=== PATIENT | male | born 1975 | race Caucasian/White ===

== ENCOUNTER 2016-10-11 13:11 | Emergency (ER) | payer SELFPAY ==
[~2016-10-11] VITALS: Ht 172.7 cm; Wt 86.2 kg
[2016-10-11 14:16] LABS: BASOPHILS % (AUTO) 0.7 % (0.0-2.0); DIFF TOTAL % 100 %; EOSINOPHILS # (AUTO) 0.1 /CMM (0.0-0.7); EOSINOPHILS % (AUTO) 1.3 % (0.0-6.0); HEMATOCRIT 34 % (39-51); HEMOGLOBIN 10.4 g/dL (13.5-17.5); LYMPHOCYTES # (AUTO) 0.9 /CMM (0.8-4.8); LYMPHOCYTES % (AUTO) 21.8 % (20.0-44.0); MEAN CORPUSCULAR HEMOGLOBIN 21 PG (26.0-33.0); MEAN CORPUSCULAR HGB CONC 31 g/dl (31.0-36.0); MEAN CORPUSCULAR VOLUME 69 fL (80-96); MONOCYTES # (AUTO) 0.4 /CMM (0.1-1.30); MONOCYTES % (AUTO) 9.3 % (2.0-12.0); NEUTROPHILS # (AUTO) 2.8 /CMM (1.8-8.9); NEUTROPHILS % (AUTO) 66.9 % (43.0-81.0); PLATELET COUNT (AUTO) 81 /CMM (150-450); RED BLOOD CELL COUNT(AUTO) 4.91 MIL/uL (4.5-6.0); WHITE BLOOD COUNT (AUTO) 4.2 K/uL (4.3-11.0)
[2016-10-11 14:26] LABS: CALCIUM, SERUM 7.6 mg/dL (8.5-10.1); CREATININE 0.5 mg/dL (0.6-1.3); POTASSIUM 3.5 mmol/L (3.5-5.1)
[2016-10-11 14:31] LABS: ALBUMIN 3.2 g/dL (3.4-5.0); BILIRUBIN,DIRECT 0.3 mg/dL (0.0-0.2); BILIRUBIN,TOTAL 0.6 mg/dL (0.2-1.0); INDIRECT BILIRUBIN 0.3 mg/dL (0.0-1.1); TOTAL PROTEIN, SERUM 8.6 g/dL (6.4-8.2)
[2016-10-11 14:43] LABS: INR 1.15 (0.87-1.13); PROTHROMBIN TIME 12.1 SECS (9.5-12.7)
[2016-10-11 14:50] LABS: BAND % (MANUAL) 2 % (0.0-5.0); BASOPHILS % (MANUAL) 1 % (0.0-2.0); EOSINOPHILS % (MANUAL) 1 % (0-4); LYMPHOCYTES % (MANUAL) 29 % (16-48); PLATELET ESTIMATE DECREASED
[2016-10-11 14:51] LABS: ANISOCYTOSIS 2+; HYPOCHROMASIA 1+; MICROCYTOSIS 2+; POLYCHROMASIA FEW; TEAR DROP CELLS FEW
[2016-10-11 18:18] VITALS: BP 143/87
== END 2016-10-11 18:19 | disposition home or self-care (01) ==
LOC: ER 13:12
DX: R04.0 Epistaxis (principal); F10.129 Alcohol abuse with intoxication, unspecified; R51 Headache; D69.6 Thrombocytopenia, unspecified; D64.9 Anemia, unspecified; D72.819 Decreased white blood cell count, unspecified
CPT/HCPCS: 36415; 70450-TC; 80048-TC; 80076-TC; 85025-TC; 85730-TC; A4606; G0480; Z7610

== ENCOUNTER 2016-10-11 23:44 | Emergency (ER) | payer SELFPAY ==
[~2016-10-11] VITALS: Ht 152.4 cm; Wt 99.8 kg
[2016-10-12 00:23] VITALS: BP 122/92
== END 2016-10-12 01:23 | disposition home or self-care (01) ==
LOC: ER 23:44
DX: R04.0 Epistaxis (principal); D69.6 Thrombocytopenia, unspecified

== ENCOUNTER 2017-10-07 20:25 | Emergency (ER) | payer SELFPAY ==
[~2017-10-07] VITALS: Ht 165.1 cm; Wt 74.8 kg
--- NOTE | 2017-10-07 20:30 | NUR ---
"ETOH/CONCRETE DUST INDUCED COUGH SINCE YESTERDAY", NAD NOTED, VSS, RESP EVEN AND UNLABORED, PT WAS PUT ON MONITOR, WAITING FOR MD OLIVEROS.
--- NOTE | 2017-10-07 21:17 | NUR ---
Patient is resting comfortably in bed with eyes closed. Easily aroused. VSS
--- NOTE | 2017-10-07 23:15 | NUR ---
ENDORSED TO DEANA, CHARGE NURSE, VSS, RESTING COMFORTABLY, ON MONITOR.
[2017-10-08 03:28] VITALS: BP 126/72
--- NOTE | 2017-10-08 03:29 | NUR ---
Patient given written and verbal discharge instructions. Patient verbalizes understanding of instructions. Patient is ambulatory with steady gait. Refuses offer of prison placement. Patient given list of available shelters in surrounding area.
== END 2017-10-08 03:29 | disposition home or self-care (01) ==
LOC: ER 20:27
DX: F10.10 Alcohol abuse, uncomplicated (principal); I10 Essential (primary) hypertension; D69.6 Thrombocytopenia, unspecified; D64.9 Anemia, unspecified; Z60.2 Problems related to living alone; Y90.9 Presence of alcohol in blood, level not specified
CPT/HCPCS: 99284; A4606; Z7610

== ENCOUNTER 2018-06-07 17:22 | Emergency (ER) | payer SELFPAY ==
[~2018-06-07] VITALS: Ht 165.1 cm; Wt 83.5 kg
[2018-06-07] MEDS ORDERED: IV NS 0.9% 1,000 ML BAG IV ONE (18:00)
--- NOTE | 2018-06-07 18:12 | NUR ---
PT FOUND BY PARAMEDICS SMELING OF ETOH SOMBULENT. PT SENT TO CT PIV PLACED SALINE BOLUS STARTED. BLOOD SUGAR 122 MD AWARE. PT SPEAKS SOME BARBADIAN BUT MAINLY IRANIAN, PT MOVES ALL EXTREMITIES WELL
[2018-06-07 18:15] LABS: BASOPHILS % (AUTO) 0.9 % (0.0-2.0); HEMATOCRIT 34 % (39-51); HEMOGLOBIN 11.4 g/dL (13.5-17.5); LYMPHOCYTES # (AUTO) 0.8 /CMM (0.8-4.8); LYMPHOCYTES % (AUTO) 21.4 % (20.0-44.0); MEAN CORPUSCULAR HGB CONC 34 g/dl (31.0-36.0); MEAN CORPUSCULAR VOLUME 82 fL (80-96); MONOCYTES # (AUTO) 0.3 /CMM (0.1-1.30); MONOCYTES % (AUTO) 8.4 % (2.0-12.0); NEUTROPHILS # (AUTO) 2.5 /CMM (1.8-8.9); NEUTROPHILS % (AUTO) 68.3 % (43.0-81.0); RED BLOOD CELL COUNT(AUTO) 4.17 MIL/uL (4.5-6.0); WHITE BLOOD COUNT (AUTO) 3.6 K/uL (4.3-11.0)
[2018-06-07 18:18] LABS: CARBON DIOXIDE 23 mmol/L (21-32); CHLORIDE 105 mmol/L (98-107); CREATININE 0.8 mg/dL (0.6-1.3); GLUCOSE 125 mg/dL (74-106); PLATELET COUNT (AUTO) 37 /CMM (150-450); SODIUM SERUM 141 mmol/L (136-145); UREA NITROGEN, BLOOD 5 mg/dL (7-18)
[2018-06-07 18:20] LABS: INR 1.25 (0.85-1.15)
[2018-06-07 18:22] LABS: POTASSIUM 2.8 mmol/L (3.5-5.1)
[2018-06-07 18:23] LABS: BILIRUBIN,TOTAL 2.7 mg/dL (0.2-1.0)
[2018-06-07 18:24] LABS: ACETAMINOPHEN < 2 ug/ml (10-30); ALANINE AMINOTRANSFERASE 102 U/L (12-78); ALCOHOL, BLOOD 421 mg/dL (0-0); ALKALINE PHOSPHATASE 235 U/L (46-116); ASPARTATE AMINOTRANSFERASE 201 U/L (15-37); BILIRUBIN,DIRECT 1.5 mg/dL (0.0-0.2); SALICYLATE < 2.8 mg/dL (2.8-20.0); TOTAL PROTEIN, SERUM 8.2 g/dL (6.4-8.2)
[2018-06-07 18:34] LABS: THYROID STIMULATING HORMONE 0.831 uIU/mL (0.358-3.74)
[2018-06-07] MEDS ORDERED: POTASSIUM CL. PREMIX PERIPHER. 50 ML ONE ×3 (19:02→23:07)
[2018-06-07] MEDS: POTASSIUM CL. PREMIX PERIPHER. 50 ML IV SCH ×4 (19:15→23:50)
--- NOTE | 2018-06-07 19:16 | NUR ---
ASSUMED CARE. PT ASLEEP, SOMNOLENT, NO ACUTE DISTRESS NOTED, RESP EVEN AND UNLABORED. NO PAIN OR DISCOMFORT NOTED AT THIS TIME. CALL LIGHT WIHTIN REACH. WILL CONTINUE OT MONITOR PT CLOSELY. PT ON CARDIAC MONITORING.
[2018-06-07 19:17] LABS: BAND % (MANUAL) 11 % (0.0-5.0); EOSINOPHILS % (MANUAL) 2 % (0-4); LYMPHOCYTES % (MANUAL) 24 % (16-48); MONOCYTES % (MANUAL) 10 % (0-11.0); NEUTROPHILS % (MANUAL) 53 (42-76)
[2018-06-07] MEDS ORDERED: POTASSIUM CHLORIDE 20 MEQ TAB.PRT.SR PO ONE (19:30)
[2018-06-07] MEDS ORDERED: Magnesium 1GM/D5W 100ML PREMIX PIGGYBACK IV ONE (19:30)
[2018-06-07] MEDS ORDERED: Magnesium 1GM/D5W 100ML PREMIX 100 ML IV ONE (20:26)
--- NOTE | 2018-06-07 23:22 | NUR ---
Patient asleep but arousable. Voided freely through urinal. No distress noted.
[2018-06-08] MEDS ORDERED: POTASSIUM CL. PREMIX PERIPHER. 50 ML ONE (00:16)
--- NOTE | 2018-06-08 01:23 | NUR ---
PT ASLEEP, EASILY AROUSABLE, NO ACUTE DISTRESS NOTED, RESP EVEN AND UNLABORED. CALL LIGHT WITHIN REACH. WILL CONTINUE TO MONITOR PT CLOSELY.
[2018-06-08] MEDS ORDERED: POTASSIUM CHLORIDE 20 MEQ TAB.PRT.SR PO ONE (03:33)
[2018-06-08 03:59] VITALS: BP 115/69
== END 2018-06-08 04:04 | disposition home or self-care (01) ==
LOC: ER 17:26
DX: S09.8XXA Other specified injuries of head, initial encounter (principal); F10.129 Alcohol abuse with intoxication, unspecified; D69.6 Thrombocytopenia, unspecified; E87.6 Hypokalemia; I10 Essential (primary) hypertension; Y90.8 Blood alcohol level of 240 mg/100 ml or more; Z60.2 Problems related to living alone; W18.39XA Other fall on same level, initial encounter; Y93.89 Activity, other specified; Y92.89 Other specified places as the place of occurrence of the external cause; Y99.8 Other external cause status
CPT/HCPCS: 36415; 70450; 70486; 80048; 80076; 80329; 82962; 83735; 84443; 85025; 85730; 93005; 96365; 96366; 96367; 99285; G0480 ×2; J3475; J3480 ×4; J7030; A4606; Z7610

== ENCOUNTER 2019-03-22 22:37 | Inpatient (IN) | payer MEDICAID ==
[~2019-03-22] VITALS: Ht 172.7 cm; Wt 75.3 kg
--- NOTE | 2019-03-22 23:00 | NUR ---
PT BIBRA FROM STREET FOR ALCOHOL INTOXICATION. PT RESPONSIVE TO PAINFUL STIMULI. VITAL SIGNS STABLE. PLACED ON CONTINUOUS MONITOR AND PULSE OX. WILL CONTINUE TO MONITOR
--- NOTE | 2019-03-23 00:09 | NUR ---
PT RESTING COMFORTABLY IN BED. VITAL SIGNS STABLE. WILL CONTINUE TO MONITOR
--- NOTE | 2019-03-23 04:33 | NUR ---
PT HAS UNSTEADY GAIT. UNABLE TO AMBULTE TO RESTROOM. URINAL PROVIDED TO PT. SITTER AT BEDSIDE, WILL CONTINUE TO MONITOR
--- NOTE | 2019-03-23 07:18 | NUR ---
PT SLEEPING RESP EVEN UNLABORED ON MONITORS
--- NOTE | 2019-03-23 08:52 | NUR ---
PT AWAKE VSS AWAITING EVALUATION BY ER PROVIDER.
[2019-03-23] MEDS ORDERED: LORAZEPAM INJ 2 MG/ML VIAL IV ONE (09:30)
[2019-03-23] MEDS ORDERED: LORAZEPAM INJ 2 MG/ML VIAL ONE (09:34)
[2019-03-23] MEDS ORDERED: ONDANSETRON HCL/PF 4 MG/2 ML VIAL ONE (09:41)
--- NOTE | 2019-03-23 09:44 | NUR ---
PT NAUSEA PRESENT IV STARTED 20G RT AC INFUSING NS AND ZOFRAN 4 MG IVP AND ATIVAN 4 MG IVP PER MD ORDER LABS DRAWN SENT LAB
[2019-03-23] MEDS ORDERED: ONDANSETRON HCL/PF 4 MG/2 ML VIAL IVP ONE (10:00)
[2019-03-23] MEDS ORDERED: IV NS 0.9% 1,000 ML BAG IV ONE (10:00)
[2019-03-23 10:06] LABS: ALBUMIN 2.2 g/dL (3.4-5.0); BILIRUBIN,DIRECT 1.4 mg/dL (0.0-0.2); BILIRUBIN,TOTAL 2.1 mg/dL (0.2-1.0); CALCIUM, SERUM 6.9 mg/dL (8.5-10.1); CREATININE 0.5 mg/dL (0.6-1.3); POTASSIUM 3.7 mmol/L (3.5-5.1); TOTAL PROTEIN, SERUM 6.8 g/dL (6.4-8.2)
--- NOTE | 2019-03-23 10:09 | NUR ---
PT PEND ADMIT FOR WITHDRAWL
--- NOTE | 2019-03-23 10:16 | NUR ---
PANEL ON-CALL PAGED
[2019-03-23 11:05] LABS: BASOPHILS % (AUTO) 0.8 % (0.0-2.0); EOSINOPHILS % (AUTO) 0.3 % (0.0-6.0); HEMATOCRIT 23 % (39-51); HEMOGLOBIN 7.1 g/dL (13.5-17.5); LYMPHOCYTES # (AUTO) 0.6 /CMM (0.8-4.8); LYMPHOCYTES % (AUTO) 18.7 % (20.0-44.0); MEAN CORPUSCULAR HGB CONC 31 g/dl (31.0-36.0); MEAN CORPUSCULAR VOLUME 72 fL (80-96); MONOCYTES # (AUTO) 0.2 /CMM (0.1-1.30); MONOCYTES % (AUTO) 6.1 % (2.0-12.0); NEUTROPHILS # (AUTO) 2.5 /CMM (1.8-8.9); NEUTROPHILS % (AUTO) 74.1 % (43.0-81.0); RED BLOOD CELL COUNT(AUTO) 3.22 MIL/uL (4.5-6.0); WHITE BLOOD COUNT (AUTO) 3.3 K/uL (4.3-11.0)
[2019-03-23 11:06] LABS: PLATELET COUNT (AUTO) 23 /CMM (150-450)
[2019-03-23 11:08] LABS: LYMPHOCYTES % (MANUAL) 24 % (16-48); MONOCYTES % (MANUAL) 4 % (0-11.0)
[2019-03-23 11:10] LABS: NEUTROPHILS % (MANUAL) 72 (42-76)
--- NOTE | 2019-03-23 12:13 | NUR ---
MED-SURGE BED 315-1
--- NOTE | 2019-03-23 12:20 | NUR ---
REPORT GIVEN TO NANCY MASON.
--- NOTE | 2019-03-23 12:23 | NUR ---
RN NOTES REPORT RECEIVED FROM MIKKI MASON.
--- NOTE | 2019-03-23 12:36 | NUR ---
PT Yasmin RANSFERED TO FLOOR
[2019-03-23] MEDS ORDERED: ZOLPIDEM TARTRATE 5 MG TABLET PO PRN (13:00)
[2019-03-23] MEDS ORDERED: Z GUARD REMEDY 2 OZ OINT TP PRN (13:00)
[2019-03-23] MEDS ORDERED: MAGNESIUM HYDROXIDE 30 ML UDC PO PRN (13:00)
[2019-03-23] MEDS ORDERED: MAG HYDROX/AL HYDROX/SIMETH 30 ML UDC PO PRN (13:00)
--- NOTE | 2019-03-23 13:30 | NUR ---
RESEARCH CONSULTANT ADMITTING NOTES ADMITTED A 43 YEARS OLD MALE TO UNIT VIA GURNEY ACCOMPANIED BY 2 E.R NURSE. PATIENT IS VERY LETHARGIC. EASILY AROUSABLE. NO C/O PAIN OR DISCOMFORT AT THIS TIME. PATIENT ORIENTED TO UNIT, STAFF AND ROOM. ON ROOM AIR, BREATHING EVEN AND UNLABORED. V/S TAKEN AND RECORDED. PHYSICAL ASSESSMENT DONE. PHOTOS OF SKIN ISSUES TAKEN AND FILED ON CHART. ABDOMEN SOFT, NON-DISTENDED WITH POSITIVE BOWEL SOUNDS ON FOUR QUADRANTS, LUNGS CLEAR ON AUSCULTATION. PATIENT WITH IV ACCESS ON RIGHT AC #20, PATENT AND INTACT. SAFETY MEASURES INITIATED, BED PLACED IN LOW LOCKED POSITION, SIDE RAILS UP X2. CALL LIGHT PLACED WITHIN EASY REACH. WILL CONTINUE TO MONITOR.
[2019-03-23 13:35] VITALS: BP 132/75
[2019-03-23] MEDS: IV NS 0.9% 1,000 ML IV PRN (14:30)
[2019-03-23] MEDS: Thiamine 100 MG in IV D5W 50 ML IV SCH (14:31)
[2019-03-23 16:00] VITALS: BP 124/75
--- NOTE | 2019-03-23 16:00 | NUR ---
DIRECTOR MISSION NOTES PATIENT NOTED WITH RED AND BLACK COLOR MIXED IN THE STOOLS . MD MADE AWARE AND ORDERED FOR STOOL OB. WILL CONTINUE TO MONITOR.
--- NOTE | 2019-03-23 18:46 | NUR ---
PIPELINES LABORER CLOSING NOTES PATIENT IN BED RESTING COMFORTABLY IN MODERATE HIGH BACK REST. A/O X 2. ON RA, TOLERATING WELL. IV FLUIDS ON RIGHT AC WITH NS @75ML/HR, PATENT AND INTACT. ON TELE MONITORING WITH CURRENT READINGS OF SINUS TACHYCARDIA, HR OF 110. NO SIGNS OF CARDIAC DISTRESS. SAFETY MEASURES IN PLACE, BED IN LOW LOCKED POSITION, SIDE RAILS UP X2. CALL LIGHT WITHIN EASY REACH. WILL ENDORSE TO RETAIL SUPERVISOR NURSE.
--- NOTE | 2019-03-23 19:40 | NUR ---
RN INITIAL NOTES: RECEIVED REPORT FROM NANCY MASON. PT IN BED, LETHARGIC, RESPONDS TO TACTILE STIMULI. PER REPORT PT HAD BM TODAY, UNABLE TO HOLD AND POOP ALL OVER THE FLOOR, BM MIXED WITH DARK AND BLOOD STOOL. NOTED PT'S BED NOT WORKING, BED ALRM NOT FUNCTIONING, NOTIFIED HOSPICE FELLOW AND WILL LOOK FOR ANOTHER ROOM AND BED TO TRANSFER THE PT. IV ACCESS PATENT AND FLUSHING WELL, INFUSING WITH NS AT 75ML/HR, NO S/S OF IV INFILTRATION NOTED. ON TELE MONITORING SINUS TACHY 112. SAFETY PRECAUTIONS FOR FALL INITIATED, CALL LIGHT IN REACH, WILL CONTINUE MONITORING PT.
[2019-03-23 20:00] VITALS: BP_SYST 129; BP_SYST 130; BP_DIAS 73; BP_DIAS 74
--- NOTE | 2019-03-23 20:29 | NUR ---
RN NOTES: TRANSFER PT TO ROOM CLOSER TO STATION, PT FALL RISK, AND ALCOHOL WITHDRAWAL. MOVED TO ROOM 310-2 WITH ALL BELONGINGS SENT WITH PT UPON TRANSFER
--- NOTE | 2019-03-23 20:30 | NUR ---
RN NOTES: ASSISTED PT TO BATHROOM, ABLE TO AMBULATE WITH ASSIST. PT BM BLOODY, ALMOST FILLED THE TOILET BOWL, UNABLE TO COLLECT STOOL FOR OB BECAUSE PT UNABLE TO HOLD MOVING BOWELS. ASSISTED BACK TO BE, VS TAKEN AND RECORDED. WILL NOTIFY , PT COMPLAINING OF HEAD ACHE.
[2019-03-23 20:32] VITALS: BP 129/73
--- NOTE | 2019-03-23 20:51 | NUR ---
BLOOD SUGAR: CHECKED PT'S BLOOD SUGAR, RESULT IS 105
--- NOTE | 2019-03-23 20:54 | NUR ---
RN NOTES: PAGED DECORATING CONSULTANT MD TO GIVE AN UPDATE REGARDING PT
--- NOTE | 2019-03-23 21:00 | NUR ---
RN NOTES: SUCTION SET UP SECURED, SIDE RAILS PADDED AT THIS TIME, PT ON SEIZURE PRECAUTIONS
--- NOTE | 2019-03-23 21:48 | NUR ---
RN NOTES: SAIL REPAIRER MD CURRENTLY IN THE UNIT, RELAYED PT'S H/H AND PLT, EPISODE OF BLOODY STOOL, LATEST VS AND HR, PER MD TO SEND STOOL TO LAB FOR OB. NO TRANSFUSION ORDER AT THIS TIME. WILL CONTINUE MONITORING PT.
[2019-03-23] MEDS: ACETAMINOPHEN 325 MG TABLET PO PRN (21:51)
--- NOTE | 2019-03-23 21:52 | NUR ---
PRN TYLENOL: PT C/O HEAD ACHE, PRN TYLENOL 650 MG TAB PO ADMINISTERED TO PT AT THIS TIME. PER MD REYEZ TO GIVE.
[2019-03-24] VITALS (26 sets, daily range): BP systolic 122–155; BP diastolic 65–90
[2019-03-24] MEDS: HYDROCODONE/APAP 5/325MG 1 EACH TABLET PO PRN (00:47)
--- NOTE | 2019-03-24 00:48 | NUR ---
PRN NORCO: P C/O HEAD ACHE, STATED "JULIANO CIRO CASTELLANO", CALLED BRAD JADE TO TRANSLATE, PT CYPRIOT SPEAKING ONLY, PS 02/27, PRN NORCO 5/325 MG TAB PO ADMINISTERED TO PT AT THIS TIME. WILL CONTINUE TO MONITOR AND REASSESS PT. ALL COMMUNICATIONS TRANSLATED TO CYPRIOT BY BRAD Milsl CYPRIOT SPEAKING STAFF.
[2019-03-24] MEDS: IV NS 0.9% 1,000 ML IV PRN ×2 (02:50→21:38)
[2019-03-24] MEDS: ONDANSETRON HCL/PF 4 MG/2 ML VIAL IVP PRN ×4 (03:24→21:22)
--- NOTE | 2019-03-24 03:24 | NUR ---
PRN ZOFRAN: PT C/O "MUCHO VOMITO AND NAUSEA", PRN ZOFRAN ADMINISTERED AT THIS TIME. ALL COMMUNICATIONS TRANSLATED BY WICKER WORKER MARCIANO NAMIBIAN SPEAKING RN. WILL CONTINUE TO MONITOR AND REASSESS
--- NOTE | 2019-03-24 05:30 | NUR ---
rn notes: noted hand and leg tremors upon ambulating to the bathroom.
[2019-03-24] MEDS: LORAZEPAM INJ 2 MG/ML VIAL IV PRN ×4 (05:39→17:16)
--- NOTE | 2019-03-24 05:40 | NUR ---
PRN ATIVAN: NOTED PT TO B RESTLESS,WITH HAND AND LEG TREMORS, SWEATING, ANXIOUS, ON SINUS TACHYCARDIA HR 115, PRN ATIVAN 1MG IVP ADMINISTERED AT THIS TIME. WILL CONTINUE TO MONITOR AND REASSESS PT.
[2019-03-24 06:06] LABS: BASOPHILS % (AUTO) 0.4 % (0.0-2.0); EOSINOPHILS % (AUTO) 2.3 % (0.0-6.0); LYMPHOCYTES # (AUTO) 0.3 /CMM (0.8-4.8); LYMPHOCYTES % (AUTO) 18.5 % (20.0-44.0); MEAN CORPUSCULAR HGB CONC 31 g/dl (31.0-36.0); MEAN CORPUSCULAR VOLUME 72 fL (80-96); MONOCYTES # (AUTO) 0.2 /CMM (0.1-1.30); MONOCYTES % (AUTO) 9.5 % (2.0-12.0); NEUTROPHILS # (AUTO) 1.1 /CMM (1.8-8.9); NEUTROPHILS % (AUTO) 69.3 % (43.0-81.0); RED BLOOD CELL COUNT(AUTO) 2.66 MIL/uL (4.5-6.0)
[2019-03-24 06:27] LABS: CALCIUM, SERUM 7.4 mg/dL (8.5-10.1); CREATININE 0.6 mg/dL (0.6-1.3); MAGNESIUM 1.7 mg/dL (1.8-2.4); POTASSIUM 3.5 mmol/L (3.5-5.1)
[2019-03-24 06:39] LABS: HEMOGLOBIN 5.9 g/dL (13.5-17.5); WHITE BLOOD COUNT (AUTO) 1.6 K/uL (4.3-11.0)
[2019-03-24 06:40] LABS: HEMATOCRIT 19 % (39-51); PLATELET COUNT (AUTO) 15 /CMM (150-450)
--- NOTE | 2019-03-24 06:41 | NUR ---
CRITICAL RESULT: WBC 1.6, PLT 15, HGB 5.9, HCT 19 REPORTED BY NIKKI CARLSON, READ BACK COMPLETED. NOTIFIED MD CUSHION SPRING ASSEMBLER, AWAITING CALL BACK.
--- NOTE | 2019-03-24 06:42 | NUR ---
RN NOTES: NOTIFIED COLOR DRUM WORKER
--- NOTE | 2019-03-24 06:52 | NUR ---
RN CLOSING NOTES: PT REMAINS A/O X2-3 ON 2L OXYGEN VIA NC RESPIRATIONS EVEN AND UNLABORED. IV ACCESS REMAINS PATENT AND FLUSHING WELL, INFUSING WITH NS AT 75ML/HR. NO S/S OF IV INFILTRATION NOTED. REMAINS SINUS RHYTHM TO SINUS TACH HR 91. KEPT SIDE RAILS PADDED, SUCTION SET UP REMAINS IN PLACED. NO EPISODE OF SEIZURE NOTED THROUGHOUT THE SHIFT. STILL FOR STOOL OB. AWAITING FOR DRUM HANDLER EPIC MD TO CALLBACK REGARDING CRITICAL LAB RESULT. VS REMAINS STABLE, NEEDS ATTENDED. SAFETY PRECAUTIONS FOR FALL REMAINS ENGAGED, CALL LIGHT IN REACH, WILL ENDORSE TO DAY RN FOR CONTINUITY OF CARE.
--- NOTE | 2019-03-24 07:20 | NUR ---
RN OPENING NOTES: RECEIVED PATIENT IN BED RESTING COMFORTABLY IN MODERATE HIGH BACK REST. A/O X2-3. ON 2L OXYGEN VIA NC RESPIRATIONS EVEN AND UNLABORED. IV FLUIDS ON RIGHT AC #20 WITH NS AT 75ML/HR. NO S/S OF IV INFILTRATION NOTED. ON TELE MONITORING WITH READING OF SINUS RHYTHM TO SINUS TACH HR 90'S. SAFETY MEASURES IN PLACE, BED IN LOW LOCKED POSITION, SIDE RAILS UP X 2. CALL LIGHT WITHIN EASY REACH, WILL CONTINUE TO MONITOR.
--- NOTE | 2019-03-24 07:30 | NUR ---
2ND PAGED TO [facility] PUTTY MIXER: PLACED SECOND CALL TO [facility] , ASSIGNED MD DR MCGARRY, REGARDING CRITICAL LAB RESULT. AWAITING CALL BACK
--- NOTE | 2019-03-24 08:05 | NUR ---
RN NOTES PAGED DR. MCGARRY TWICE. AWAITING FOR CALL BACK. DR. XIE ON UNIT, MADE AWARE AND ORDERED 3 UNITS OF PRBC WHILE WAITING FOR DR. MCGARRY TO CALL BACK. WILL CONTINUE TO MONITOR.
--- NOTE | 2019-03-24 08:20 | NUR ---
RN NOTES CALL RECEIVED FROM DR. MCGARRY INFORMED OF PATIENTS CONDITION AND LAB RESULTS, ORDERS RECEIVED FOR PRBC 2 UNITS TRANSFUSE STAT AND PLATELETS 1 UNIT. TRANSFER PATIENT TO ICU FOR CLOSER MONITORING. ORDERS NOTED AND CARRIED OUT. CALLED NURSE CLINICIAN FOR BED IN ICU. LAB CALLED FOR STAT PRBC.
[2019-03-24] MEDS: FOLIC ACID 1 MG TABLET PO SCH (09:00)
--- NOTE | 2019-03-24 09:05 | NUR ---
RN NOTES BLOOD TRANSFUSION STARTED @ 09:00. PATIENT'S VITAL SIGNS WITHIN NORMAL LIMITS. INFORMED CONSENT SIGNED AND FILED AT THE CHART. WILL CONTINUE TO MONITOR.
--- NOTE | 2019-03-24 09:10 | NUR ---
RN NOTES CALLED ICU AND SPOKE TO NICK MASON, TO GIVE REPORT REGARDING PATIENT ON 310 - 2.
[2019-03-24 09:49] LABS: EOSINOPHILS % (MANUAL) 1 % (0-4); LYMPHOCYTES % (MANUAL) 20 % (16-48); MONOCYTES % (MANUAL) 6 % (0-11.0); NEUTROPHILS % (MANUAL) 73 (42-76)
--- NOTE | 2019-03-24 09:50 | NUR ---
RN NOTES PATIENT WAS TRANSFERRED TO ICU ON BED 251, ENDORSE TO NICK MASON.
[2019-03-24] MEDS: Magnesium 1GM/D5W 100ML PREMIX 100 ML IV SCH ×2 (10:19→11:12)
--- NOTE | 2019-03-24 10:40 | NUR ---
RN NOTE 1000: Received patient from tele 310. Awake, A/Ox2, Bulgarian speaking understands little Monegasque. Dx ETOH withdrawal and GIB AEB episode of bloody stools. H/H 5.9/, Plt 15, to transfer 2 units of PRBC and 1 unit Plt per previous nurse. Will F/U with H/H after 2 units PRBC. First unit PRBC ongoing, no any adverse reactions noted. Awaiting GI consult. Checked diaper, no BM noted for now. 1020: Placed new PIV on LH. Ativan and Zofran given secondary to noted with tremors and nausea. 1040: No any significant changes noted at this time. Kept clean, warm and dry. Needs attended.
[2019-03-24] MEDS: Thiamine 100 MG in IV D5W 50 ML IV SCH (13:30)
--- NOTE | 2019-03-24 18:37 | NUR ---
RN NOTE Done with 2 PRBC and 1 Plt transfusion. Awaiting H/H level. Followed up with CT re: CT abd, said may do at 1999.
[2019-03-24 19:31] LABS: HEMOGLOBIN 7.4 g/dL (13.5-17.5)
[2019-03-25] VITALS (20 sets, daily range): BP systolic 121–146; BP diastolic 59–97
[2019-03-25 00:45] LABS: HEMOGLOBIN 7.5 g/dL (13.5-17.5)
[2019-03-25] MEDS: ONDANSETRON HCL/PF 4 MG/2 ML VIAL IVP PRN ×3 (02:50→15:09)
--- NOTE | 2019-03-25 04:42 | NUR ---
1999 Received alert and resting quietly on bed. Scheduled for CT this evening, waiting for transport. Remains stable, post transfusion. No signs of reaction of any. 2044 Mobile via Busy Mooser[place] transported to CT on bed, via ACLS protocal on monitor with charge Nurse Vandana. [address] and back to room 251-1. Patient stable and connected to monitor. Vital signs re- viewed and stable. 2129 Patient nauseous and medicated per MD order. No signs of active bleeding or vomiting. 2199 Reassessment, medication with good effect. Observed resting quietly. No active emesis. 0000 On rounds, observed resting comfortably. No signs of delirium tremens. No seizure activity. 399 Condition stable, dozing intermittently. No signs of active bleeding. No seizure activity or delirium tremens of any this shift. Safe environment maintained, monitored closely, free of injury,
[2019-03-25 05:02] LABS: BASOPHILS % (AUTO) 0.4 % (0.0-2.0); EOSINOPHILS % (AUTO) 2.9 % (0.0-6.0); HEMATOCRIT 23 % (39-51); HEMOGLOBIN 7.6 g/dL (13.5-17.5); LYMPHOCYTES # (AUTO) 0.3 /CMM (0.8-4.8); LYMPHOCYTES % (AUTO) 16.6 % (20.0-44.0); MEAN CORPUSCULAR HGB CONC 33 g/dl (31.0-36.0); MEAN CORPUSCULAR VOLUME 75 fL (80-96); MONOCYTES # (AUTO) 0.1 /CMM (0.1-1.30); MONOCYTES % (AUTO) 7.5 % (2.0-12.0); NEUTROPHILS # (AUTO) 1.4 /CMM (1.8-8.9); NEUTROPHILS % (AUTO) 72.6 % (43.0-81.0); RED BLOOD CELL COUNT(AUTO) 3.11 MIL/uL (4.5-6.0)
[2019-03-25 05:13] LABS: CALCIUM, SERUM 7.4 mg/dL (8.5-10.1); CREATININE 0.5 mg/dL (0.6-1.3); MAGNESIUM 1.8 mg/dL (1.8-2.4); PHOSPHORUS 2.8 mg/dL (2.5-4.9); POTASSIUM 3.3 mmol/L (3.5-5.1)
[2019-03-25 05:26] LABS: PLATELET COUNT (AUTO) 20 /CMM (150-450); WHITE BLOOD COUNT (AUTO) 1.9 K/uL (4.3-11.0)
[2019-03-25 05:58] LABS: NEUTROPHILS % (MANUAL) 73 (42-76)
[2019-03-25 06:00] LABS: LYMPHOCYTES % (MANUAL) 21 % (16-48); METAMYELOCYTES % 6 % (0-0)
[2019-03-25] MEDS ORDERED: IV NS 0.9% 500 ML BAG IV ONE (06:00)
--- NOTE | 2019-03-25 07:24 | NUR ---
FLOOR ATTENDANT NOTES RECEIVED BEDSIDE REPORT. PATIENT SLEEPING ABLE TO AROUSE WITH VOICE AND TOUCH. NEPALESE SPEAKING MALE A/O X3. NO SIGNS OR SYMPTOMS OF RESPIRATORY DISTRESS SATURATING 100% ON ROOM AIR. NO C/O PAIN NOTED. IVF TO RAC # 20 GAUGE RUNNING NS @ 75 ML/HR. LEFT HAND # 20 GAUGE SALINE LOCK. SINUS TACHY ON MONITOR LOW 100"S. CRITICAL LAB PLATELETS CALLED TO NOC WILL F/U WITH MD. SAFETY FALL AND ASPIRATION PRECAUTIONS IN PLACE BED IN LOW LOCKED POSITION. CALL LIGHT WITHIN REACH WILL CONT TO MONITOR ACCORDINGLY
[2019-03-25] MEDS: FOLIC ACID 1 MG TABLET PO SCH (09:38)
[2019-03-25] MEDS ORDERED: POTASSIUM CHLORIDE 20 MEQ TAB.PRT.SR PO SCH (10:00)
[2019-03-25] MEDS: IV NS 0.9% 1,000 ML IV PRN (11:15)
[2019-03-25] MEDS: NEXIUM 40 MG VIAL IV SCH ×2 (11:46→22:53)
[2019-03-25 12:25] LABS: HEMOGLOBIN 7.4 g/dL (13.5-17.5)
[2019-03-25] MEDS: Magnesium 1GM/D5W 100ML PREMIX 100 ML IV SCH ×2 (13:04→15:08)
[2019-03-25] MEDS: Thiamine 100 MG in IV D5W 50 ML IV SCH (14:04)
--- NOTE | 2019-03-25 16:43 | NUR ---
REPORT GIVEN TO MARTIN MASON PATIENT TO GO TO ROOM 111-2
[2019-03-25] MEDS: ACETAMINOPHEN 325 MG TABLET PO PRN (17:04)
--- NOTE | 2019-03-25 17:58 | NUR ---
PATIENT TRANSFERED TO TELE 1ST FLOOR ROOM 112-2 ACLS PROTOCOL
--- NOTE | 2019-03-25 18:00 | NUR ---
tele biology intern: notes received pt from icu via bed accompanied by 2 staff. pt already had dinner there. pt awake, a/ox2-3; serbian speaking only. oriented to room and surroundings. vss. tele sr=[id number]. no apparent distress noted. instructed to call for assistance. bed alarm on for safety. bsc provided. call light within reach. will continue to monitor.
--- NOTE | 2019-03-25 18:50 | NUR ---
tele senior risk analyst: notes in bed awake, looking at the windows. no c/o pain or any discomfort. needs attended. instructed to call for assistance. will continue to monitor.
--- NOTE | 2019-03-25 19:00 | NUR ---
tele poultry grader: notes bedside report given to wesley (verito) for continuity of care. call light within reach.
--- NOTE | 2019-03-25 19:30 | NUR ---
PLATE WORKER HELPER OPENING NOTE PATIENT CITIZEN OF [place] SPEAKING MALE A/O X3, AWAKE SITTING ON THE BED. NO SIGNS OF RESPIRATORY DISTRESS. O2 100% ON ROOM AIR. NO COMPLAINING OF PAIN AT HIS MOMENT. IVF TO RAC # 20G RUNNING NS@ 75ML/HR. LEFT HAND # 20G SALINE LOCK. PATIENT ON REGULAR DIET. SAFETY GEARS ON. BED AT LOW/LOCKED POSITION AND CALL LIGHT IN REACH WILL CONTINUE TO MONITOR.
[2019-03-25 19:40] LABS: HEMOGLOBIN 7.5 g/dL (13.5-17.5)
[2019-03-25] MEDS: HYDROCODONE/APAP 5/325MG 1 EACH TABLET PO PRN (23:06)
[2019-03-26] VITALS (7 sets, daily range): BP systolic 130–156; BP diastolic 68–92
[2019-03-26] MEDS: ONDANSETRON HCL/PF 4 MG/2 ML VIAL IVP PRN ×3 (01:01→20:32)
[2019-03-26] MEDS: IV NS 0.9% 1,000 ML IV PRN ×2 (05:07→23:14)
[2019-03-26] MEDS: HYDROCODONE/APAP 5/325MG 1 EACH TABLET PO PRN ×2 (05:08→09:28)
[2019-03-26 06:36] LABS: BASOPHILS % (AUTO) 0.3 % (0.0-2.0); EOSINOPHILS % (AUTO) 3.9 % (0.0-6.0); HEMATOCRIT 24 % (39-51); HEMOGLOBIN 7.8 g/dL (13.5-17.5); LYMPHOCYTES # (AUTO) 0.5 /CMM (0.8-4.8); MEAN CORPUSCULAR HGB CONC 32 g/dl (31.0-36.0); MEAN CORPUSCULAR VOLUME 74 fL (80-96); MONOCYTES # (AUTO) 0.2 /CMM (0.1-1.30); MONOCYTES % (AUTO) 12.5 % (2.0-12.0); NEUTROPHILS # (AUTO) 1.1 /CMM (1.8-8.9); NEUTROPHILS % (AUTO) 58.3 % (43.0-81.0); RED BLOOD CELL COUNT(AUTO) 3.23 MIL/uL (4.5-6.0)
[2019-03-26 07:05] LABS: CALCIUM, SERUM 7.2 mg/dL (8.5-10.1); CREATININE 0.5 mg/dL (0.6-1.3); MAGNESIUM 1.8 mg/dL (1.8-2.4); PHOSPHORUS 2.7 mg/dL (2.5-4.9); POTASSIUM 3.2 mmol/L (3.5-5.1)
--- NOTE | 2019-03-26 07:12 | NUR ---
HEEL BUILDER MACHINE CLOSING NOTE PATIENT [place] SPEAKING MALE A/O X3. NO SIGNS OF RESPIRATORY DISTRESS. NO COMPLAINING OF PAIN AT HIS MOMENT. IVF TO RAC # 20G RUNNING NS@ 75ML/HR. LEFT HAND # 20G SALINE LOCK. PATIENT ON REGULAR DIET. SAFETY GEARS ON. BED AT LOW/LOCKED POSITION AND CALL LIGHT IN REACH WILL ENDORSE PATIENT TO NEXT SHIFT FOR CONTINUES CARE.
--- NOTE | 2019-03-26 07:15 | NUR ---
FARM EQUIPMENT MECHANIC NOTES PATIENT'S WBC = 1.9. WILL ENDORSE TO AM NURSE.
--- NOTE | 2019-03-26 07:45 | NUR ---
RN OPENING TELE NOTES RECEIVED REPORT FROM [facility] SHIFT NURSE. PT AWAKE IN BED, WOLOF SPEAKING, RESPIRATIONS ARE EASY AND UNLABORED, NO SIGNS AND SYMPTOMS OF RESPIRATORY DISTRESS NOTED. L HAND G20 INTACT, CLEAN, NO SIGNS OF INFILTRATION NOTED. BED IS IN LOW POSITION, LOCKED, CALL LIGHT WITHIN REACH. WILL CONTINUE TO MONITOR PATIENT ACCORDINGLY.
[2019-03-26 08:12] LABS: WHITE BLOOD COUNT (AUTO) 1.9 K/uL (4.3-11.0)
[2019-03-26 08:14] LABS: PLATELET COUNT (AUTO) 14 /CMM (150-450)
[2019-03-26] MEDS: FOLIC ACID 1 MG TABLET PO SCH (08:44)
[2019-03-26] MEDS: NEXIUM 40 MG VIAL IV SCH (08:45)
[2019-03-26 09:10] LABS: BAND % (MANUAL) 3 % (0.0-5.0); LYMPHOCYTES % (MANUAL) 31 % (16-48); NEUTROPHILS % (MANUAL) 58 (42-76)
[2019-03-26 09:11] LABS: EOSINOPHILS % (MANUAL) 3 % (0-4); MONOCYTES % (MANUAL) 12 % (0-11.0)
--- NOTE | 2019-03-26 09:28 | NUR ---
OFFERED PATIENT NORCO5-325 FOR PAIN. PATIENT TOOK MEDICATION, WILL REASSESS PAIN LEVEL.
--- NOTE | 2019-03-26 09:35 | NUR ---
PATIENT REPORTED CHEST PAIN, DENIES ANY SOB. DENIES THAT IT RADIATES. VITALS CHECKED, BP 136/87 mmHg. SINUS RHYTHM ON MONITOR. NO ECTOPIES. CALLED RESPIRATORY FOR STAT EKG.
--- NOTE | 2019-03-26 09:45 | NUR ---
NOTIFIED DR CAR OF PATIENT'S CHEST PAIN AND STAT EKG RESULT RECEIVED ORDERS FOR NITROGLYCERIN 0.4MG SL, PUT PATIENT ON 02 VIA NC, ELEVATED HEAD OF THE BED. PATIENT IS ALERT, AWAKE AND ORIENTED X 4. NO RESPIRATORY DISTRESS NOTED.
[2019-03-26] MEDS ORDERED: NITROGLYCERIN 0.4 MG/TAB BOTTLE SL PRN (10:00)
--- NOTE | 2019-03-26 10:05 | NUR ---
REASSESSED PATIENT. DENIES ANY CHEST PAIN. BP 149/90 mmHg, HEART RATE 96. REPORTS BLOATING.
[2019-03-26] MEDS: POTASSIUM CHLORIDE 20 MEQ TAB.PRT.SR PO SCH ×2 (11:40→15:21)
[2019-03-26] MEDS: THIAMINE HCL 100 MG TABLET PO SCH (14:21)
--- NOTE | 2019-03-26 14:43 | NUR ---
Social service consult requested by Dr. Pickering for homelessness. Pt. is a 43 year old male who was admitted to [facility] for alcohol withdrawal. Pt. has had a history of ER visits for alcohol intoxication. Pt. was found on the street. SW met with pt. bedside. SINAN Fitzpatrick assisted SW with Kiswahili translation. Pt. is alert and oriented x 4. Pt. states he lives with his friend Yemi at [id number] [place] [address] in [place]. [place]. Yemi can be reached at . Pt's emergency contact is his cousin Nikko . Pt. does have a strong history of etoh dependence. Pt. states he has been binge drinking for the past week. Pt. alcohol of choice is beer. Pt. denies any drug use. Pt. states, he attended an alcohol treatment program on [facility] [address] [facility] a few months back. SW offered pt. referral to alcohol treatment programs and pt. accepted. Pt. denies any suicidal and homicidal ideations and visual/auditory hallucinations at this time. Pt. states his friend Yemi will pick him up at time of discharge. DANIEL updated case managers [place] and NIKKI Chambers regarding pt's discharge plan.
[2019-03-26] MEDS: LORAZEPAM INJ 2 MG/ML VIAL IV PRN ×2 (16:22→20:33)
--- NOTE | 2019-03-26 19:20 | NUR ---
BASE REMOVER CLOSING NOTES ENDORSED REPORT TO NOC SHIFT NURSE. IV RIGHT AC G20 INFUSING NS AT 75ML/HR. SITE IS CLEAN, DRY, INTACT, NO SIGNS AND SYMPTOMS OF INFILTRATION. DENIES ANY PAIN AT THIS TIME, DENIES SOB, CHEST PAIN, NAUSEA. PATIENT IS LAYING IN BED AWAKE ALERT AND ORIENTED, SEIZURE PRECAUTIONS IN PLACE, FALL PRECAUTIONS IN PLACE, BED IS IN LOW POSITION, LOCKED, CALL LIGHT WITHIN REACH.
--- NOTE | 2019-03-26 19:30 | NUR ---
RELE RN OPENING NOTES PT ALERT AND AWAKE AOTIMES 2. SETSWANA SPEAKING. IV RIGHT AC G20 INFUSING NS AT 75ML/HR. SITE IS CLEAN, DRY, INTACT, NO SIGNS AND SYMPTOMS OF INFILTRATION. NO ACUTE DISTRESS NOTED. PATIENT IS LAYING IN BED AWAKE ALERT AND ORIENTED, SEIZURE PRECAUTIONS IN PLACE, FALL PRECAUTIONS IN PLACE, BED IS IN LOW POSITION, LOCKED, CALL LIGHT WITHIN REACH. WILL CARRY OUT PLAN OF CARE.
--- NOTE | 2019-03-26 19:30 | NUR ---
ENDORSED TO [facility] SHIFT NURSE THAT PATIENT NEEDS TO COLLECT STOOL FOR OCCULT BLOOD TEST. PATIENT ALREADY HAD BOWEL MOVEMENT BEFORE ORDERS WERE PLACED.
[2019-03-26] MEDS: PANTOPRAZOLE 40 MG TABLET.DR PO SCH (20:48)
[2019-03-27] VITALS: BP_SYST 134; BP_DIAS 82; BP_DIAS 85
[2019-03-27 04:00] VITALS: BP 128/78
--- NOTE | 2019-03-27 05:00 | NUR ---
ATIVAN GIVEN TIMES 2 OVER NIGHT TO KEEP PT COMFORTABLE AND PER MD ORDERS FOR SIEZRE PERCAUTIONS.
[2019-03-27] MEDS: LORAZEPAM INJ 2 MG/ML VIAL IV PRN ×2 (05:03→08:45)
[2019-03-27 06:34] LABS: CALCIUM, SERUM 7.6 mg/dL (8.5-10.1); CREATININE 0.6 mg/dL (0.6-1.3); POTASSIUM 3.3 mmol/L (3.5-5.1)
--- NOTE | 2019-03-27 06:36 | NUR ---
OCCULT STOOL SAMPLE COLLECTED AND SENT TO LAB
--- NOTE | 2019-03-27 06:39 | NUR ---
CLOSING NOTES PT STOOL SAMPLE COLLECTED AND SEND TO LAB. URDU SPEAKING. IV RIGHT AC G20 INFUSING NS AT 75ML/HR. SITE IS CLEAN, DRY, INTACT, NO SIGNS AND SYMPTOMS OF INFILTRATION. NO ACUTE DISTRESS NOTED. PATIENT IS LAYING IN BED AWAKE ALERT AND ORIENTED, SEIZURE PRECAUTIONS IN PLACE, FALL PRECAUTIONS IN PLACE, BED IS IN LOW POSITION, LOCKED, CALL LIGHT WITHIN REACH. WILL ENDORSE TO AM SHIFT. .
[2019-03-27 07:44] LABS: OCCULT BLOOD STOOL NEGATIVE (NEGATIVE)
[2019-03-27 08:00] VITALS: BP 128/82
[2019-03-27] MEDS: PANTOPRAZOLE 40 MG TABLET.DR PO SCH (08:45)
[2019-03-27] MEDS: FOLIC ACID 1 MG TABLET PO SCH (08:45)
[2019-03-27] MEDS: THIAMINE HCL 100 MG TABLET PO SCH (08:46)
[2019-03-27 09:05] LABS: BASOPHILS % (AUTO) 0.4 % (0.0-2.0); EOSINOPHILS % (AUTO) 3.5 % (0.0-6.0); HEMATOCRIT 25 % (39-51); HEMOGLOBIN 7.8 g/dL (13.5-17.5); LYMPHOCYTES # (AUTO) 0.4 /CMM (0.8-4.8); LYMPHOCYTES % (AUTO) 23.8 % (20.0-44.0); MEAN CORPUSCULAR HGB CONC 32 g/dl (31.0-36.0); MEAN CORPUSCULAR VOLUME 75 fL (80-96); MONOCYTES # (AUTO) 0.2 /CMM (0.1-1.30); MONOCYTES % (AUTO) 11.5 % (2.0-12.0); NEUTROPHILS # (AUTO) 1.1 /CMM (1.8-8.9); NEUTROPHILS % (AUTO) 60.8 % (43.0-81.0)
[2019-03-27 09:52] LABS: WHITE BLOOD COUNT (AUTO) 1.7 K/uL (4.3-11.0)
[2019-03-27] MEDS: Magnesium 1GM/D5W 100ML PREMIX 100 ML IV SCH ×2 (10:00→11:00)
[2019-03-27 10:06] LABS: PLATELET COUNT (AUTO) 20 /CMM (150-450)
[2019-03-27] MEDS: POTASSIUM CHLORIDE 20 MEQ TAB.PRT.SR PO ONE ×2 (10:30→11:23)
--- NOTE | 2019-03-27 10:31 | NUR ---
PATIENT WANTS TO LEAVE HOSPITAL,PATIENT KNOWS HIS NAME BUT UNABLE TO TELL FRIENDS NAME,DR. CAR EVALUATED PATIENT AND EXPLAINED NEED TO BE IN HOSPITAL,PATIENT INSISTED TO LEAVE,PRN ATIVAN GIVEN,INTAKE MADE AWARE,AWAITS PYCHE CONSULT,SITTER AT BEDSIDE FOR SAFETY.INGE FORESTRY PILOT NOTIFIED.
--- NOTE | 2019-03-27 10:36 | NUR ---
NURSING SUP MADE AWARE.
--- NOTE | 2019-03-27 10:55 | NUR ---
PT REMOVED IV AND BEGAN TAPING ARM AND REFUSES TO ALLOW RN TO CLEAN UP ARM.
[2019-03-27 11:03] LABS: BAND % (MANUAL) 4 % (0.0-5.0); EOSINOPHILS % (MANUAL) 3 % (0-4); LYMPHOCYTES % (MANUAL) 22 % (16-48); MONOCYTES % (MANUAL) 9 % (0-11.0); NEUTROPHILS % (MANUAL) 62 (42-76)
--- NOTE | 2019-03-27 11:33 | NUR ---
PT REFUSING MEDICATION POTASSIUM WELL MAGNESIUM IV FLUID. STATES HE DOES NOT WANT ANY MORE MEDICATION.
--- NOTE | 2019-03-27 11:42 | NUR ---
PT DROPPED HIS PHONE ON THE FLOOR AND CONTINUES TO THROW IT ON THE GROUND STATING IT IS NOT CHARGING. PT IS REQUESTING A LOCKSTITCH TUNNEL ELASTIC OPERATOR WAS TOLD TO ALLOW TIME FOR THE LOCKSTITCH TUNNEL ELASTIC OPERATOR TO CHARGE THE PHONE.
--- NOTE | 2019-03-27 13:34 | NUR ---
PT AMA PT SIGNED AMA. CRISIS TEAM MET WITH PT AND STATED UNABLE TO PLACE PT ON HOLD. PT STATED HE WANTED TO LEAVE. PT REMOVED OWN IV AND REFUSED ANY RESOURCES. PT SIGNED AMA FORM AND HOMELESS WAIVER AND WAS EXPLAINED IN DETAIL WHAT COULD HAPPEN AND PT STILL STATED HE WANTED TO LEAVE. PT GATHERED ALL BELONGINGS AND LEFT WITH MASONRY INSTALLER THROUGH THE FRONT OF THE HOSPITAL.
== END 2019-03-27 13:25 | disposition left against medical advice (07) | DRG 770 ==
LOC: ER 22:41 → TELE 03-23 12:20 → ICU 03-24 09:42 → TELE1 03-25 17:39 → MEDSG1 03-27 09:47
PROVIDERS: ADMIT Internal Medicine; ATTEND Internal Medicine
PROC: 30233R1 Transfusion of Nonautologous Platelets into Peripheral Vein, Percutaneous Approach (ICD-10-PCS; principal; 2019-03-24)
PROC: 30233P1 Transfusion of Nonautologous Frozen Red Cells into Peripheral Vein, Percutaneous Approach (ICD-10-PCS; principal; 2019-03-24)
DX: F10.229 Alcohol dependence with intoxication, unspecified (principal); D61.818 Other pancytopenia; K70.10 Alcoholic hepatitis without ascites; K92.2 Gastrointestinal hemorrhage, unspecified; E83.42 Hypomagnesemia; F10.239 Alcohol dependence with withdrawal, unspecified; D64.9 Anemia, unspecified; K70.30 Alcoholic cirrhosis of liver without ascites; K21.9 Gastro-esophageal reflux disease without esophagitis; R07.9 Chest pain, unspecified; Y90.8 Blood alcohol level of 240 mg/100 ml or more
CPT/HCPCS: 36415; 80048-TC; 80061-TC; 80076-TC; 82140-TC; 82272-TC; 82962-TC; 83735-TC; 84100-TC; 84484-TC; 85025-TC; 85027-TC; 86850-TC; 86921-TC; 87081-TC; 87806; 93307-TC; G0378; G0480; J2060; J2405; J3411; J3475; J7030; J7050; J7060; P9016-BL; P9034-BL

== ENCOUNTER 2019-06-11 16:16 | Emergency (ER) | payer SELFPAY ==
[~2019-06-11] VITALS: Ht 162.6 cm; Wt 75.3 kg
--- NOTE | 2019-06-11 16:22 | NUR ---
"[id number], ETOH, ADMITS TO DRINKING ESTEVES. BG 155 SHUTTLECOCK FEATHER TRIMMER" PT AROUSABLE, PT ON MONTIOR VSS ,NAD NOTED, PENDING ER PROVIDER ARLIN
--- NOTE | 2019-06-11 18:46 | NUR ---
Patient is resting comfortably in bed with eyes closed. Easily aroused. VSS
[2019-06-11] MEDS ORDERED: IV NS 0.9% 1,000 ML BAG IV ONE (20:00)
[2019-06-11 20:02] LABS: BASOPHILS % (AUTO) 1.7 % (0.0-2.0); EOSINOPHILS % (AUTO) 2.1 % (0.0-6.0); HEMATOCRIT 28 % (39-51); HEMOGLOBIN 8.6 g/dL (13.5-17.5); LYMPHOCYTES # (AUTO) 0.8 /CMM (0.8-4.8); LYMPHOCYTES % (AUTO) 45.2 % (20.0-44.0); MEAN CORPUSCULAR HGB CONC 31 g/dl (31.0-36.0); MEAN CORPUSCULAR VOLUME 70 fL (80-96); MONOCYTES # (AUTO) 0.1 /CMM (0.1-1.30); MONOCYTES % (AUTO) 7.6 % (2.0-12.0); NEUTROPHILS # (AUTO) 0.7 /CMM (1.8-8.9); NEUTROPHILS % (AUTO) 43.4 % (43.0-81.0); RED BLOOD CELL COUNT(AUTO) 3.95 MIL/uL (4.5-6.0)
[2019-06-11 20:18] LABS: ALBUMIN 2.5 g/dL (3.4-5.0); BILIRUBIN,DIRECT 3.4 mg/dL (0.0-0.2); BILIRUBIN,TOTAL 4.4 mg/dL (0.2-1.0); CALCIUM, SERUM 7.5 mg/dL (8.5-10.1); CREATININE 0.6 mg/dL (0.6-1.3); PLATELET COUNT (AUTO) 12 /CMM (150-450); POTASSIUM 3.2 mmol/L (3.5-5.1); WHITE BLOOD COUNT (AUTO) 1.7 K/uL (4.3-11.0)
[2019-06-11] MEDS ORDERED: POTASSIUM CHLORIDE 20 MEQ TAB.PRT.SR PO ONE ×2 (21:00→21:47)
[2019-06-11] MEDS ORDERED: CHLORDIAZEPOXIDE HCL 25 MG CAPSULE PO ONE (21:00)
[2019-06-11 21:14] LABS: BAND % (MANUAL) 1 % (0.0-5.0); EOSINOPHILS % (MANUAL) 1 % (0-4); LYMPHOCYTES % (MANUAL) 28 % (16-48); MONOCYTES % (MANUAL) 6 % (0-11.0); NEUTROPHILS % (MANUAL) 64 (42-76)
[2019-06-11] MEDS ORDERED: CHLORDIAZEPOXIDE HCL 25 MG CAPSULE ONE (21:47)
--- NOTE | 2019-06-12 00:26 | NUR ---
Patient is resting comfortably in bed with eyes closed. Easily aroused. VSS
--- NOTE | 2019-06-12 03:32 | NUR ---
IV removed. Catheter intact and site benign. Pressure and 4x4 applied to site. No bleeding noted. Patient given written and verbal discharge instructions. Patient verbalizes understanding of instructions. Patient is ambulatory with steady gait. Refuses offer of care home placement. Patient given list of available shelters in surrounding area.
[2019-06-12 03:33] VITALS: BP 124/81
== END 2019-06-12 03:34 | disposition home or self-care (01) ==
LOC: ER 16:17
DX: F10.129 Alcohol abuse with intoxication, unspecified (principal); K74.69 Other cirrhosis of liver; D69.6 Thrombocytopenia, unspecified; D61.818 Other pancytopenia; E80.7 Disorder of bilirubin metabolism, unspecified; R51 Headache; I10 Essential (primary) hypertension; R74.0 Nonspecific elevation of levels of transaminase and lactic acid dehydrogenase [LDH]; F10.10 Alcohol abuse, uncomplicated; R00.0 Tachycardia, unspecified; R60.0 Localized edema; Y90.8 Blood alcohol level of 240 mg/100 ml or more; Z60.2 Problems related to living alone; Z59.0 Homelessness
CPT/HCPCS: 36415; 70450; 71045; 80048; 80076; 80307; 83690; 84484; 85025; 93005; 99284; J7030; G0480

== ENCOUNTER 2019-06-12 08:04 | Emergency (ER) | payer SELFPAY ==
[~2019-06-12] VITALS: Ht 162.6 cm; Wt 81.6 kg
--- NOTE | 2019-06-12 08:12 | NUR ---
PT SELF PRESENTS TO ED C/O GENERALIZED BODY ACHES, SHAKES. STATES WIDRAAWING FROM ALCOHOL USE. SEEN YESTERDAY FOR SAME REASON. GOWNED AND PLACED ON MONITOR. STABLE VITALS ENVIRONMENTAL STUDIES FACULTY MEMBER. AWAITING MD OLIVEROS.
[2019-06-12] MEDS ORDERED: LORAZEPAM INJ 2 MG/ML VIAL IVP ONE (08:30)
[2019-06-12] MEDS ORDERED: IV NS 0.9% 1,000 ML BAG IV ONE (08:30)
--- NOTE | 2019-06-12 08:30 | NUR ---
IV LINE STARTED BLOOD DRAWN AND SENT TO LAB.
[2019-06-12] MEDS ORDERED: LORAZEPAM INJ 2 MG/ML VIAL ONE (08:33)
[2019-06-12 08:39] LABS: EOSINOPHILS % (AUTO) 1.4 % (0.0-6.0); HEMOGLOBIN 9.1 g/dL (13.5-17.5); MEAN CORPUSCULAR HGB CONC 31 g/dl (31.0-36.0)
[2019-06-12 08:42] LABS: BASOPHILS % (AUTO) 1.8 % (0.0-2.0); HEMATOCRIT 30 % (39-51); LYMPHOCYTES # (AUTO) 0.5 /CMM (0.8-4.8); LYMPHOCYTES % (AUTO) 27.2 % (20.0-44.0); MEAN CORPUSCULAR VOLUME 71 fL (80-96); MONOCYTES # (AUTO) 0.2 /CMM (0.1-1.30); MONOCYTES % (AUTO) 9.9 % (2.0-12.0); NEUTROPHILS % (AUTO) 59.7 % (43.0-81.0); RED BLOOD CELL COUNT(AUTO) 4.21 MIL/uL (4.5-6.0)
[2019-06-12 08:44] LABS: CALCIUM, SERUM 7.7 mg/dL (8.5-10.1); CREATININE 0.6 mg/dL (0.6-1.3); POTASSIUM 3.8 mmol/L (3.5-5.1)
[2019-06-12 08:51] LABS: PLATELET COUNT (AUTO) 12 /CMM (150-450); WHITE BLOOD COUNT (AUTO) 1.7 K/uL (4.3-11.0)
[2019-06-12 08:58] LABS: ALBUMIN 2.8 g/dL (3.4-5.0); BILIRUBIN,DIRECT 4.3 mg/dL (0.0-0.2); BILIRUBIN,TOTAL 5.7 mg/dL (0.2-1.0); TOTAL PROTEIN, SERUM 7.6 g/dL (6.4-8.2)
[2019-06-12] MEDS ORDERED: CHLORDIAZEPOXIDE HCL 25 MG CAPSULE PO ONE (09:30)
[2019-06-12] MEDS ORDERED: CHLORDIAZEPOXIDE HCL 25 MG CAPSULE ONE (09:33)
[2019-06-12 09:58] LABS: BAND % (MANUAL) 1 % (0.0-5.0); LYMPHOCYTES % (MANUAL) 25 % (16-48); NEUTROPHILS % (MANUAL) 62 (42-76)
[2019-06-12 09:59] LABS: MONOCYTES % (MANUAL) 12 % (0-11.0)
--- NOTE | 2019-06-12 10:48 | NUR ---
Patient discharged to home in stable condition. Written and verbal after care instructions given. Patient verbalizes understanding of instruction. IV removed. Catheter intact and site benign. Pressure and 4x4 applied to site. No bleeding noted.
[2019-06-12 10:49] VITALS: BP 126/74
== END 2019-06-12 10:49 | disposition home or self-care (01) ==
LOC: ER 08:04
DX: F10.239 Alcohol dependence with withdrawal, unspecified (principal); I10 Essential (primary) hypertension; R74.0 Nonspecific elevation of levels of transaminase and lactic acid dehydrogenase [LDH]; D69.6 Thrombocytopenia, unspecified; R00.0 Tachycardia, unspecified; R25.1 Tremor, unspecified; Y90.6 Blood alcohol level of 120-199 mg/100 ml; Z60.2 Problems related to living alone; Z59.0 Homelessness
CPT/HCPCS: 36415; 80048; 80076; 80307; 85025; 96374; 99283; J2060; J7030; G0480

== ENCOUNTER 2020-01-26 07:10 | Emergency (ER) | payer MEDICAID ==
[~2020-01-26] VITALS: Ht 162.6 cm; Wt 70.8 kg
--- NOTE | 2020-01-26 07:11 | NUR ---
[id number], from [place], c/o abd pain and bloody stool since yesterday last alcohol drink yesterday, also c/o L sided sharp chest pain, non-radiating since 0400 in the morning. to ER bed 12, hooked to verifying machine operator and pox, changed to hosp gown, warm blanket provided, Dr Campoverde at bedside.
[2020-01-26] MEDS ORDERED: IV NS 0.9% 1,000 ML BAG IV ONE (07:30)
[2020-01-26] MEDS ORDERED: ONDANSETRON HCL/PF 4 MG/2 ML VIAL IVP ONE (07:30)
[2020-01-26] MEDS ORDERED: ONDANSETRON HCL/PF 4 MG/2 ML VIAL ONE (07:40)
[2020-01-26 07:46] LABS: BASOPHILS # (AUTO) 0.2 /CMM (0.0-0.2); EOSINOPHILS % (AUTO) 0.6 % (0.0-6.0); HEMATOCRIT 27 % (39-51); HEMOGLOBIN 9.2 g/dL (13.5-17.5); LYMPHOCYTES # (AUTO) 1.3 /CMM (0.8-4.8); MEAN CORPUSCULAR HGB CONC 34 g/dl (31.0-36.0); MEAN CORPUSCULAR VOLUME 95 fL (80-96); MONOCYTES # (AUTO) 0.5 /CMM (0.1-1.30); MONOCYTES % (AUTO) 5.9 % (2.0-12.0); NEUTROPHILS # (AUTO) 6.6 /CMM (1.8-8.9); NEUTROPHILS % (AUTO) 76.5 % (43.0-81.0); RED BLOOD CELL COUNT(AUTO) 2.85 MIL/uL (4.5-6.0); WHITE BLOOD COUNT (AUTO) 8.6 K/uL (4.3-11.0)
[2020-01-26 07:48] LABS: PLATELET COUNT (AUTO) 34 /CMM (150-450)
[2020-01-26 08:16] LABS: CALCIUM, SERUM 6.9 mg/dL (8.5-10.1); CREATININE 0.7 mg/dL (0.6-1.3); POTASSIUM 3.9 mmol/L (3.5-5.1)
[2020-01-26 08:22] LABS: ALBUMIN 1.9 g/dL (3.4-5.0); BILIRUBIN,DIRECT 2.7 mg/dL (0.0-0.2); TOTAL PROTEIN, SERUM 5.9 g/dL (6.4-8.2)
--- NOTE | 2020-01-26 09:12 | NUR ---
Patient complains of bloody stool. made MD aware. says "It's ok, H&H are normal, he can follow up with his primary doctor or go to [facility]".
--- NOTE | 2020-01-26 10:08 | NUR ---
IV removed. Catheter intact and site benign. Pressure and 4x4 applied to site. No bleeding noted. Patient given written and verbal discharge instructions. Patient verbalizes understanding of instructions. Patient is ambulatory with steady gait. Refuses offer of snf placement. Patient given list of available shelters in surrounding area. In proper clothing upon discharge, all belongings returned to patient, name band removed.
[2020-01-26 10:14] VITALS: BP 132/81
[2020-01-26 10:56] LABS: EOSINOPHILS % (MANUAL) 2 % (0-4); LYMPHOCYTES % (MANUAL) 9 % (16-48); MONOCYTES % (MANUAL) 7 % (0-11.0); NEUTROPHILS % (MANUAL) 82 (42-76)
== END 2020-01-26 10:11 | disposition home or self-care (01) ==
LOC: ER 07:16
DX: K62.5 Hemorrhage of anus and rectum (principal); F10.10 Alcohol abuse, uncomplicated; I10 Essential (primary) hypertension; D64.9 Anemia, unspecified; Z60.2 Problems related to living alone; Y90.9 Presence of alcohol in blood, level not specified
CPT/HCPCS: 36415; 74021; 80048; 80076; 83690; 85025; 85730; 96374; 99284; J2405; J7030